=== PATIENT | female | born 1975 | race Caucasian/White ===

== ENCOUNTER → 2018-07-15 18:22 | Outpatient (CLI) | payer OTHER, SELFPAY ==
[2018-07-15 20:18] LABS: Chlamydia Trachomatis by PCR Negative (Negative); Neisserai gonorrhoeae by PCR Negative (Negative); Probe Check PASS; Sample Adequacy Control PASS; Specimen Processing Control PASS
== END ==
PROVIDERS: Visit Provider Obstetrics & Gynecology
DX: Z11.3 Encounter for screening for infections with a predominantly sexual mode of transmission (principal); Z30.430 Encounter for insertion of intrauterine contraceptive device
CPT/HCPCS: 87491; 87591

== ENCOUNTER → 2019-02-19 07:33 | Outpatient (CLI) | payer OTHER, SELFPAY ==
--- NOTE | 2019-02-19 07:38 | BI_ITS ---
MAMMOGRAPHY - BILATERAL SCREENING REASON FOR EXAM: Female, 44 years old. Routine annual screening examination. PERTINENT HISTORY: Non-contributory. TECHNIQUE: Digital bilateral breast dionisio (3D mammographic acquisition) in the CC and MLO projections. 2-D mediolateral oblique (MLO) and craniocaudad (CC) views of both breasts were obtained. CAD: Full Field Digital Mammography with Computer Added Detection was performed. COMPARISON: Comparison is made with prior study dated April 16, 2017 and April 13, 2016. FINDINGS: Breast Composition: The breasts are heterogeneously dense, which may obscure small masses. Once again, there are 2 dominant nodules in the left breast. These have increased in size as compared to prior study. The superior lateral one measures 2.8 cm x 2.2 cm. The centrally located nodular density measures 3.1 cm x 2.7 cm. These most likely represent cysts. Correlation with ultrasound is recommended. No other significant abnormalities are identified. BI/SCREENING MAMM (CAD), BILAT IMPRESSION: Increase in size of the left breast nodules as described. Correlation with ultrasound of the left breast is recommended. ASSESSMENT CATEGORY: BIRADS Category 0: Incomplete. Need additional imaging evaluation. A letter regarding these results will be sent to the patient by the facility within 30 days. Approximately 10% of breast cancers are not detected by mammography. A normal mammogram should not delay biopsy of a clinically suspicious abnormality. [id number] Electronically Signed: Armando Grant, at 11:01 EDT , Service support ,
== END ==
PROVIDERS: Family Provider Family Medicine; PCP Family Medicine; Referring Provider Obstetrics & Gynecology; Visit Provider Obstetrics & Gynecology
DX: Z12.31 Encounter for screening mammogram for malignant neoplasm of breast (principal)
CPT/HCPCS: 77063; 77067

== ENCOUNTER → 2019-02-23 14:20 | Outpatient (CLI) | payer OTHER, SELFPAY ==
--- NOTE | 2019-02-23 14:22 | US_ITS ---
STUDY: ULTRASOUND BREAST - LEFT REASON FOR EXAM: Female, 44 years old. Abnormal screening mammogram. TECHNIQUE: Axial and longitudinal images of the LEFT breast were performed with a high resolution ultrasound transducer. COMPARISON: Comparison is made with prior mammogram dated February 19, 2019 and prior sonogram of the left breast dated April 18, 2016. FINDINGS: LEFT Breast: 2 cysts are seen in the left breast. The largest measures 2.9 cm x 2.9 cm x 1.1 cm. This is at the 1:00 position breast by 1 cm from nipple. A similar appearing cyst measuring 1.8 cm x 1.9 cm x 0.9 cm is seen at the 2:00 position of the breast at 3 cm from the nipple. US/Breast Limited Unilateral IMPRESSION: 2 cysts are seen in the left breast as described corresponding to the mammographic findings. Routine mammographic follow-up is recommended. ASSESSMENT CATEGORY: BIRADS Category 2: Benign. A letter regarding these results will be sent to the patient by the facility within 30 days. Electronically Signed: Armando Grant, at 15:31 EDT , Service support ,
== END ==
PROVIDERS: Family Provider Family Medicine; PCP Family Medicine; Referring Provider Obstetrics & Gynecology; Visit Provider Obstetrics & Gynecology
DX: R92.8 Other abnormal and inconclusive findings on diagnostic imaging of breast (principal)
CPT/HCPCS: 76642

== ENCOUNTER → 2020-05-17 14:20 | Outpatient (CLI) | payer OTHER, SELFPAY ==
[2020-05-17 16:58] LABS: T3 Total - Triiodothyronine 1.39 ng/mL (0.6-1.81)
[2020-05-17 17:00] LABS: Free T3 3.5 pg/mL (2.18-3.98); T4 Free Direct 1.11 ng/dL (0.76-1.46); Thyroid Stim Hormone (TSH) 0.91 uIU/mL (0.358-3.74)
[2020-05-19 17:44] LABS: Thyroid Peroxidase AB < 9 IU/mL (0-34)
[2020-05-19 18:17] LABS: Thyroglobulin Antibody < 1.0 IU/mL (0.0-0.9)
== END ==
PROVIDERS: PCP Family Medicine; Visit Provider Obstetrics & Gynecology
DX: E04.8 Other specified nontoxic goiter (principal)
CPT/HCPCS: 36415; 84439; 84443; 84480; 84481; 86376; 86800

== ENCOUNTER → 2020-05-20 15:15 | Outpatient (CLI) | payer OTHER, SELFPAY ==
--- NOTE | 2020-05-20 15:22 | US_ITS ---
STUDY: THYROID ULTRASOUND REASON FOR EXAM: Female, 45 years old. LT PALP--- PER DR TECHNIQUE: Ultrasound evaluation of the thyroid was performed with real-time and static mcgrath-scale imaging. COMPARISON: None. FINDINGS: RIGHT LOBE: The right lobe of the thyroid gland measures 5.8 x 2.0 x 1.9 cm. There is a homogeneous echotexture. Nodule 1:6 x 10 x 8 mm cystic anechoic wider than tall smoothly marginated nodule with comet tail artifact (TR 1) in the inferior right lobe consistent with a colloid cyst. LEFT LOBE: The left lobe of the thyroid gland measures 5.1 x 1.4 x 1.5 cm. There is a homogeneous echotexture. Nodule 2:5 x 3 x 4 mm cystic anechoic wider than tall smoothly marginated nodule with no echogenic foci (TR 1) and the superior left lobe consistent with a colloid cyst. ISTHMUS: The isthmus measures 3 mm thick. . The regional lymph nodes are normal. US/Thyroid IMPRESSION: Normal ultrasound examination of the thyroid. Electronically Signed: Juventino Johnson MD at 9:10 EDT Tel , Service support ,
== END ==
PROVIDERS: PCP Family Medicine; Referring Provider Obstetrics & Gynecology; Visit Provider Obstetrics & Gynecology
DX: E04.8 Other specified nontoxic goiter (principal)
CPT/HCPCS: 76536

== ENCOUNTER → 2020-05-26 15:27 | Outpatient (CLI) | payer OTHER, SELFPAY ==
--- NOTE | 2020-05-26 15:29 | BI_ITS ---
MAMMOGRAPHY - BILATERAL SCREENING REASON FOR EXAM: Female, 45 years old. Routine annual screening examination. PERTINENT HISTORY: Non-contributory. TECHNIQUE: Digital bilateral breast leona (3D mammographic acquisition) in the CC and MLO projections. 2-D mediolateral oblique (MLO) and craniocaudad (CC) views of both breasts were obtained. CAD: Full Field Digital Mammography with Computer Added Detection was performed. COMPARISON: Comparison is made with prior examination dated February 19, 2019 and April 16, 2017. FINDINGS: Breast Composition: The breasts are heterogeneously dense, which may obscure small masses. There are no dominant masses or suspicious calcifications. Once again, 2 dominant nodules are seen in the upper deep lateral aspect of the left breast. The superior lateral nodular density measures 3.2 cm x 2.8 cm. The centrally located well-defined nodular density measures 3.1 cm by 3.3 cm. These have increased slightly in size as compared to prior study. Prior sonogram demonstrated these nodules to be cysts. No other significant abnormalities are identified. There has been no significant change since the prior study. BI/SCREEN MAMM (CAD) W/LEONA BILAT IMPRESSION: Slight increase in size of the 2 nodular densities in the left breast as described. Yearly follow-up mammogram recommended. (A) ASSESSMENT CATEGORY: BIRADS Category 2: Benign. A letter regarding these results will be sent to the patient by the facility within 30 days. Approximately 10% of breast cancers are not detected by mammography. A normal mammogram should not delay biopsy of a clinically suspicious abnormality. [id number] Electronically Signed: Armando Grant, at 8:07 EDT , Service support ,
== END ==
PROVIDERS: PCP Family Medicine; Referring Provider Obstetrics & Gynecology; Visit Provider Obstetrics & Gynecology
DX: Z12.31 Encounter for screening mammogram for malignant neoplasm of breast (principal)
CPT/HCPCS: 77063; 77067

== ENCOUNTER → 2021-08-07 14:46 | Outpatient (CLI) | payer OTHER, SELFPAY ==
--- NOTE | 2021-08-07 14:49 | BI_ITS ---
MAMMOGRAPHY - BILATERAL SCREENING REASON FOR EXAM: Female, 46 years old. Routine annual screening examination. PERTINENT HISTORY: Non-contributory. TECHNIQUE: Digital bilateral breast leona (3D mammographic acquisition) in the CC and MLO projections. 2-D mediolateral oblique (MLO) and craniocaudad (CC) views of both breasts were obtained. CAD: Full Field Digital Mammography with Computer Added Detection was performed. COMPARISON: Comparison is made with prior examination dated 05/26/2020 and 02/19/2019. FINDINGS: Breast Composition: The breasts are heterogeneously dense, which may obscure small masses. Since prior study, the dominant well-defined nodular density in the central lateral aspect of the left breast has resolved. A residual 1.7 cm cyst is seen along the lateral aspect of the right breast. No other significant abnormalities are identified. BI/SCRN MAMM (CAD)W/LEONA BILAT IMPRESSION: Interval decrease in size of the left breast nodule as described. Yearly follow-up mammogram recommended. (A) ASSESSMENT CATEGORY: BIRADS Category 2: Benign. A letter regarding these results will be sent to the patient by the facility within 30 days. Approximately 10% of breast cancers are not detected by mammography. A normal mammogram should not delay biopsy of a clinically suspicious abnormality. [id number] Electronically Signed: Armando Grant MD at 15:38 EDT , Service support ,
== END ==
PROVIDERS: PCP Family Medicine; Referring Provider Obstetrics & Gynecology; Visit Provider Obstetrics & Gynecology
DX: Z12.31 Encounter for screening mammogram for malignant neoplasm of breast (principal)
CPT/HCPCS: 77063; 77067

== ENCOUNTER → 2022-10-25 | Outpatient (CLI) | payer OTHER, SELFPAY ==
--- NOTE | 2022-10-25 12:52 | BI_ITS ---
MAMMOGRAPHY - BILATERAL SCREENING REASON FOR EXAM: Female, 47 years old. Routine annual screening examination. PERTINENT HISTORY: Non-contributory. TECHNIQUE: Digital bilateral breast leona (3D mammographic acquisition) in the CC and MLO projections. 2-D mediolateral oblique (MLO) and craniocaudad (CC) views of both breasts were obtained. CAD: Full Field Digital Mammography with Computer Added Detection was performed. COMPARISON: Comparison is made with prior study dated 08/07/2021 and 05/26/2020. FINDINGS: Breast Composition: The breasts are extremely dense, which lowers the sensitivity of mammography. There are no dominant masses or suspicious calcifications. No other significant abnormalities are identified. There has been no significant change since the prior study. BI/SCRN MAMM (CAD)W/LEONA BILAT IMPRESSION: Stable bilateral screening mammogram. Yearly follow-up mammogram recommended. (A) ASSESSMENT CATEGORY: BIRADS Category 1: Negative. A letter regarding these results will be sent to the patient by the facility within 30 days. Approximately 10% of breast cancers are not detected by mammography. A normal mammogram should not delay biopsy of a clinically suspicious abnormality. [id number] Electronically Signed: Armando Grant MD at 10:00 EST ,
== END | disposition home or self-care (01) ==
LOC: OPBI 12:50
PROVIDERS: PCP Family Medicine; Visit Provider Registered Nurse
DX: Z12.31 Encounter for screening mammogram for malignant neoplasm of breast (principal)
CPT/HCPCS: 77063; 77067

== ENCOUNTER → 2022-11-19 | Outpatient (CLI) | payer OTHER, SELFPAY ==
[2022-11-23 15:53] LABS: HPV APTIMA, High Risk Negative (Negative)
== END | disposition home or self-care (01) ==
PROVIDERS: PCP Family Medicine; Visit Provider Registered Nurse
DX: Z12.4 Encounter for screening for malignant neoplasm of cervix (principal)
CPT/HCPCS: 87624; 88175; G0145

== ENCOUNTER → 2023-12-04 | Outpatient (CLI) | payer OTHER, SELFPAY ==
--- NOTE | 2023-12-04 12:12 | BI_ITS ---
MAMMOGRAPHY - BILATERAL SCREENING REASON FOR EXAM: Female, 48 years old. Routine annual screening examination. PERTINENT HISTORY: Non-contributory. TECHNIQUE: Digital bilateral breast leona (3D mammographic acquisition) in the CC and MLO projections. 2-D mediolateral oblique (MLO) and craniocaudad (CC) views of both breasts were obtained. CAD: Full Field Digital Mammography with Computer Added Detection was performed. COMPARISON: Comparison is made with prior study dated October 25, 2022 and August 07, 2021. FINDINGS: Breast Composition: The breasts are extremely dense, which lowers the sensitivity of mammography. Procedure 1.2 cm x 1.3 cm well-defined nodule in the slightly upper lateral depth aspect of the left breast. Correlation with ultrasound is recommended. No other significant abnormalities are identified. BI/SCRN MAMM (CAD)W/LEONA BILAT IMPRESSION: 1.2 cm x 1.3 cm well-defined nodule in the slightly upper lateral aspect of the left breast as described. Correlation with ultrasound is recommended. ASSESSMENT CATEGORY: BIRADS Category 0: Incomplete. Need additional imaging evaluation. A letter regarding these results will be sent to the patient by the facility within 30 days. Approximately 10% of breast cancers are not detected by mammography. A normal mammogram should not delay biopsy of a clinically suspicious abnormality. [id number] Electronically Signed: Armando Grant MD at 14:58 EST ,
== END | disposition home or self-care (01) ==
LOC: OPBI 12:12
PROVIDERS: PCP Family Medicine; Referring Provider Nurse Practitioner Women's Health; Visit Provider Nurse Practitioner Women's Health
DX: Z12.31 Encounter for screening mammogram for malignant neoplasm of breast (principal)
CPT/HCPCS: 77063; 77067

== ENCOUNTER → 2023-12-13 | Outpatient (CLI) | payer OTHER, SELFPAY ==
--- NOTE | 2023-12-13 14:24 | US_ITS ---
STUDY: ULTRASOUND BREAST - LEFT REASON FOR EXAM: Female, 48 years old. Abnormal screening mammogram. TECHNIQUE: Axial and longitudinal images of the LEFT breast were performed with a high resolution ultrasound transducer. # OF IMAGES: 65 COMPARISON: Comparison is made with prior mammogram dated June 03, 2024. FINDINGS: LEFT Breast: The mammographic abnormality corresponds to a 1.3 cm x 1.3 cm x 1 cm hypoechoic solid nodule at the 3:00 position breast at 2 cm from the nipple. This is not a typical cyst. Aspiration is recommended. Incidental note is made of dilated retroareolar ducts. A cluster of small cysts is seen at the 11:00 position of the breast 4 cm from the nipple. US/Breast Limited Unilateral IMPRESSION: The mammographic abnormality corresponds to a 1.3 cm x 1.3 cm x 1 cm hypoechoic solid nodule at the 3:00 position the breast at 2 cm from the nipple. Biopsy recommended. ASSESSMENT CATEGORY: BIRADS Category 4: Suspicious - Biopsy Should Be Considered. A letter regarding these results will be sent to the patient by the facility within 30 days. Electronically Signed: Armando Grant MD at 15:36 EST ,
== END | disposition home or self-care (01) ==
LOC: OPUS 14:23
PROVIDERS: PCP Family Medicine; Referring Provider Nurse Practitioner Women's Health; Visit Provider Nurse Practitioner Women's Health
DX: R92.8 Other abnormal and inconclusive findings on diagnostic imaging of breast (principal); N63.25 Unspecified lump in the left breast, overlapping quadrants
CPT/HCPCS: 76642

== ENCOUNTER → 2023-12-18 | Outpatient (CLI) | payer OTHER, SELFPAY | END | disposition home or self-care (01) | LOC: LABSPEC 11:06 | PROVIDERS: PCP Family Medicine; Referring Provider Surgery; Visit Provider Surgery | DX: N60.09 Solitary cyst of unspecified breast (principal) | CPT/HCPCS: 87070; 87075; 87205 ==

== ENCOUNTER → 2024-12-11 | Outpatient (CLI) | payer OTHER, SELFPAY ==
--- NOTE | 2024-12-11 12:50 | BI_ITS ---
PROCEDURE: SCRN MAMM (CAD)W/LEONA BILAT REASON FOR EXAM: F, Age 49 y/o, prior left breast aspiration. TECHNIQUE: Bilateral screening digital breast tomosynthesis with 2D and 3D images. Computer aided detection. COMPARISON: Prior exam(s) dating back to December 04, 2023.. FINDINGS: The breasts are heterogeneously dense which may obscure small masses. Small bilateral axillary lymph nodes. Stable examination. No suspicious masses, areas of developing architectural distortion, or suspicious calcifications. BI/SCRN MAMM (CAD)W/LEONA BILAT IMPRESSION: BI-RADS 2: BENIGN. RECOMMEND ANNUAL MAMMOGRAPHIC SCREENING. Follow-up code: Routine Follow-up The patient will be notified of the results by letter. Reading Location: [place] [id number]
== END | disposition home or self-care (01) ==
LOC: OPBI 12:47
PROVIDERS: PCP Family Medicine; Referring Provider Nurse Practitioner Women's Health; Visit Provider Nurse Practitioner Women's Health
DX: Z12.31 Encounter for screening mammogram for malignant neoplasm of breast (principal)
CPT/HCPCS: 77063; 77067

== ENCOUNTER → 2025-02-17 | Outpatient (CLI) | payer OTHER, SELFPAY ==
[2025-02-17 19:58] LABS: Follicle Stimulating Hormone 73.4 mIU/mL; Thyroid Stim Hormone (TSH) 0.926 uIU/mL (0.300-4.200)
[2025-02-19 04:07] LABS: Thyroid Peroxidase AB 16 IU/mL (0-34)
== END | disposition home or self-care (01) ==
PROVIDERS: Nurse Practitioner Women's Health; PCP Family Medicine; Visit Provider Obstetrics & Gynecology
DX: Z13.29 Encounter for screening for other suspected endocrine disorder (principal); R23.2 Flushing
CPT/HCPCS: 36415; 83001; 84439; 84443; 86376

== ENCOUNTER → 2025-04-14 | Outpatient (CLI) | payer OTHER, SELFPAY ==
--- OUTSIDE RECORDS SUMMARY | 2025-04-14 07:10 | XMS RPT_ITS | CCD ---
Author Organization [facility] Care Team Providers Care Direct Mail Manager Name Role Phone Dr. Stefany Mayo Primary Care Provider Dr. Stefany Mayo Referring Provider DAYANNA Sanchez Attending Provider [phone] Stefany Mayo Primary Care Provider Dr. Stefany Mayo Referring Provider [phone] Angel SALES EFFECTIVENESS MANAGER, SALES EFFECTIVENESS MANAGER-C Celeste Attending Provider Dr. Neno Sharma Attending Provider [phone] Dr. Stefany Mayo MD Primary Care Provider [phone] Angel GOODEN-Celeste Ladd Attending Provider Angel GOODEN-CCeleste Referring Provider Dr. Stefany Mayo MD Referring Provider Dr. Gianna Babin DO Attending Provider Celeste Ortiz NP Attending Unavailable Stefany Mayo Primary Care Unavailable Stefany Mayo Referring Unavailable HamtramckCeleste ac NP Attending Unavailable Angel SALES EFFECTIVENESS MANAGERCeleste Referring Unavailable Stefany Mayo Primary Care Unavailable Stefany Mayo Primary Care Unavailable Gianna Babin Attending Unavailabl e Stefany Mayo Primary Care Unavailable Rondalliff Stefany S Referring Unavailable [place] SALES EFFECTIVENESS MANAGERCeleste Attending Unavailable Medications Current Medications Medication Drug Class(es) Dates Sig (Normalized) Sig (Original) aspirin 81 mg delayed release oral tablet (5 sources) Platelet Aggregation Inhibitor, Nonsteroidal Anti-inflammatory Drug Start: 11-19-2022 Aspirin (Adult Low Dose Aspirin) 81 mg tablet,delayed release (DR/EC) Active 81 mg PO DAILY November 19, 2022 1:00am estradiol 0.5 mg oral tablet (15 sources) Estrogen Start: 11-19-2022 End: 11-19-2022 take 1 tablet by mouth once daily as needed for headache Estradiol 0.5 mg tablet Active 0.5 mg PO DAILY as needed for migraine headache November 19, 2022 3:07pm off 5 days; repeat cycle folic acid 1 mg oral tablet (5 sources) Start: 11-19-2022 take 1 tablet by mouth once daily Folic Acid 1 mg tablet Active 1 mg PO DAILY November 19, 2022 1:00am Multivitamin (Daily Multi-Vitamin) tablet (5 sources) Start: 11-19-2022 Multivitamin (Daily Multi-Vitamin) tablet Active 1 {tbl} PO DAILY November 19, 2022 1:00am Start: 11-19-2022 take 1 tablet by frank once daily Multivitamin (Daily Multi-Vitamin) tablet Active 1 TABLET PO DAILY November 19, 2022 12:00am Completed/Discontinued Medications Medication Drug Class(es) Dates Sig (Normalized) Sig (Original) SUMAtriptan 25 mg oral tablet (5 sources) Serotonin-1b and Serotonin-1d Receptor Agonist Start: 11-19-2022 End: 12-04-2023 take 1 tablet by mouth once Sumatriptan Succinate 25 mg tablet Discontinued 25 mg PO ONCE 30 November 19, 2022 1:00am December 04, 2023 2:14pm Problems Problem Classification Problem Date Documented Date Episodic/Chronic Contraceptive and procreative management (6 sources) Intrauterine contraceptive device in situ; Translations: [Presence of (intrauterine) contraceptive device] 11-19-2022 Episodic Comment on above: mirena 2018 Headache; including migraine (4 sources) Migraine with aura; Translations: [Migraine with aura, not intractable, without status migrainosus] 12-04-2023 Chronic Nonmalignant breast conditions (5 sources) Cyst of breast; Translations: [Solitary cyst of unspecified breast] 12-18-2023 Episodic Other screening for suspected conditions (not mental disorders or infectious disease) (3 sources) Encounter for screening for other suspected endocrine disorder; Translations: [Encounter for screening for malignant neoplasm of colon] Onset: 12-24-2024 Episodic Prolapse of female genital organs (2 sources) Cystocele co-occurrent with incomplete uterovaginal prolapse; Translations: [Incomplete uterovaginal prolapse] 12-24-2024 Chronic Comment on above: asymptomatic Residual codes; unclassified (1 source) Flushing; Translations: [Flushing] 02-15-2025 Episodic Unclassified (2 sources) Encounter for screening for malignant neoplasm of colon; Translations: [Z12.11 - Encounter for screening for malignant neoplasm of colon] Results Test Name Value Interpretation Reference Range Facility Stogie Packer Office Visit Reporton 03-16-2025 [facility] Office Visit Report [facility] [address], [address] [place] [address] OFFICE VISIT Date of Service: 03/16/25 MR#: [id number] Acct: [id number] Name: GIANNA ALVARADO Rep #: [id number] : 1975 Provider: FLOR nunez Age/Sex: 50/F [place] [facility] [place]: Signed Intake Vital Signs 12/24/24 13:28 03/16/25 14:05 03/16/25 14:06 Height 5 ft 6 in 5 ft 6 in 5 ft 6 in Weight: 183 lb 4 oz BMI 29.5 BP 141/85 H Intake Visit Reasons: Menopause sx Rice 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: No Is patient in pain?: No Allergies No Known Allergies Allergy (Unverified 03/16/25 14:05) Medications ???Medication ???Instructions ???Recorded ???Confirmed ???Type aspirin 81 mg tablet,delayed 81 mg PO DAILY 11/19/22 03/16/25 H istory release (Adult Low Dose Aspirin) folic acid 1 mg tablet 1 mg PO DAILY 11/19/22 03/16/25 Hi story multivitamin (Daily Multi-Vitamin 1 tab PO DAILY 11/19/22 03/16/25 History tablet) Is last menstrual period known: No Post menopausal: No Patient : No : No Control Method: IUD PFSH Family History Grandmother Diabetes Social History adopted: No household members: spouse and children current occupational status: employed 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 She does have some occasional hot flashes but her biggest concern is her lack of motivation. It is noted her blood pressure is up today. HTN not been a problem for her in past. She also states she can hear her heartbeat in her ears, has had episodes of dizziness, headache and fatigue. States when she made appointment she was having left shoulder pain but that has resolved. She states she sleeps really well She has a mirena IUD that is due to be removed in 2025 History Past Pregnancies Del. Date Name GA/Weeks Outcome Route Bth Weight Gen Labor Lgth Anesthesia Del Locatn Provider FOB Unknown Bro still Female Unknown [id number] live - Female ROS Const Constitutional: Reports as per HPI Cardio Card: Reports as per HPI Resp Resp: Reports system reviewed and no additional complaints, except as documented Musc Musc: Reports as per HPI Psych Psych: Reports as per HPI Exam Const General: cooperative and no acute distress Orientation: oriented x3 HENMT Head: normal to inspection and normocephalic Eyes General: appearance normal, both eyes and all related structures Neck Neck: normal visual inspection Resp Effort Inspection: normal respiratory effort Neuro Cognition: normal cognition Speech: speech normal Psych Appearance: grossly normal Mood: congruent mood Affect: normal affect Speech and Movement: speech and movement normal Attitude: cooperative Judgment: judgment good Coding Level of Care Code Off vis,est,level 3 Diagnoses Elevated blood pressure reading R03.0 Dizziness R42 Postmenopausal Z78.0 Hot flashes R23.2 Migraine with aura and without status migrainosus, not intractable G43.109 Status migrainosus presence: without status migrainosus Intractability: not intractable IUD (intrauterine device) in place Z97.5 Assessment and Plan Assessment and Plan (1) Elevated blood pressure reading: Status: Acute (2) Dizziness: Status: Acute (3) Postmenopausal: Status: Acute (4) Hot flashes: Status: Acute Comment: minimal (5) Migraine with aura: Status: Acute Qualifiers: Status migrainosus presence: without status migrainosus Intractability: not intractable Qualified Code(s): G43.109 - Migraine with aura, not intractable, without status migrainosus (6) IUD (intrauterine device) in place: Status: Acute Comment: mirena 2018 Plan With her elevated blood pressure and migraines, I do not feel estrogen replacement is a good option for her and will not benefit her most concerning symptoms With what she described to me, I want her to see her PCP to evaluate for cardiac issues. If her shoulder pain recurs and notes headache, change in heartbeat, needs to go to ED. YVROSE swain, annual exam 03/16/25 1452 Date Celeste Ortiz NP SALES EFFECTIVENESS MANAGER-C Cosigner Signature: Date (if applicable) CC: Normal [facility] Thyroid Peroxidase ABon 02-09 THYR PEROX AB 16 IU/mL Normal 0-34 [facility] Comment on above: Result Comment: Perf ormed at: - [facility] [address] [id number] Arts Education Teacher: Tomy Cole PhD, Phone: [phone] Performed By: #### L 4229.3875, U0531.5119, F263.5298, A020.0522 #### [facility] [address] [place], [address] Follicle Stimulating Hormone on 02-17-2025 FSH 73.4 mIU/mL Normal [facility] Comment on above: Result Comment: FEMA LE: Follicular: 1.4 - 18.1 mIU/mL Midcycle: 3.4 - 33.4 mIU/mL Luteal: 1.5 - 9.1 mIU/mL Post Menopause: 23.0 - 116.3 mIU/mL MALE: 1.4 - 18.1 mIU/mL NORMAL REFERENCE RANGES FEMALE FOLLICULAR 2.3 - 12.6 mIU/mL MID-CYCLE PEAK 5.2 - 17.5 mIU/mL LUTEAL 1.7 - 12.9 mIU/mL POST-MENOPAUSAL ON MHT 5.9 - 72.8 mIU/mL NOT ON MHT 12.7 - 132.2 mlU/mL MALE 0.7 - 10.8 mIU/mL Performed By: #### L 3300.6900, L3100.5125, L506.0400, L501.9520 #### [facility] [address] [place], [address] Follicle stimulating hormone (FSH) levelOrdered By: Celeste Ortiz on 02-17-2025 Follicle Stimulating Hormone 73.4 mIU/mL [facility] Comment on above: FEMALE:Follicular: 1 .4 - 18.1 mIU/mLMidcycle: 3.4 - 33.4 mIU/mLLuteal: 1.5 - 9.1 mIU/mLPost Menopause: 23.0 - 116.3 mIU/mLMALE: 1.4 - 18.1 mIU/mL NORMAL REFERENCE RANGES FEMALE FOLLICULAR 2.3 - 12.6 mIU/mL MID-CYCLE PEAK 5.2 - 17.5 mIU/mL LUTEAL 1.7 - 12.9 mIU/mL POST-MENOPAUSAL ON MHT 5.9 - 72.8 mIU/mL NOT ON MHT 12.7 - 132.2 mlU/mL MALE 0.7 - 10.8 mIU/mL T4 Free Directon 02-17-2025 T4 FREE DIRECT 1.30 ng/dL Normal 0.76-1.46 [facility] Comment on above: Performed By: #### L 3300.6900, L3100.5125, L506.0400, L501.9520 #### [facility] [address] [place], [address] T4 freeOrdered By: Celeste ac on 02-17-2025 Free T4 [Mass/Vol] 1.30 ng/dL 0.76-1.46 [facility] TPO Ab QnOrdered By: Celeste anderson on 02-17-2025 Thyroid Peroxidase Antibodies 16 IU/mL 0-34 [facility] Comment on above: Performed at: - [facility] [id number] [place], [place] [id number] Director: Tomy Cole PhD, Phone: [phone] TSH DL <= 0.005 mIU/L QnOrde red By: Celeste Ortiz on 02-17-2025 Thyroid Stimulating Hormone (TSH) 0.926 uIU/mL 0.300-4.200 [facility] Thyroid Stim Hormone (TSH)on 02-17-2025 TSH 0.926 uIU/mL Normal 0.300-4.200 [facility] Comment on above: Performed By: #### L 3300.6900, L3100.5125, L506.0400, W694.7190 #### [facility] [address] 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) Chief Complaint: Annual Rice 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: No Is patient in pain?: No Allergies No Known Allergies Allergy (Unverified 12/24/24 13:19) Medications ???Medication ???Instructions ???Recorded ???Confirmed ???Type aspirin 81 mg tablet,delayed 81 mg PO DAILY 11/19/22 12/24/24 H istory release (Adult Low Dose Aspirin) estradiol 0.5 mg tablet 0.5 mg PO DAILY PRN migraine 11/1912/24/24 Rx headache #20 tabs folic acid 1 mg tablet 1 mg PO DAILY 11/19/22 12/24/24 Hi story multivitamin (Daily Multi-Vitamin 1 tab PO DAILY 11/19/22 12/24/24 History tablet) Is last menstrual period known: No Post menopausal: Yes Patient : No : No Control Method: Mirena 2018 [facility] Family History Grandmother Diabetes Social History adopted: No household members: spouse and children current occupational status: employed current occupation: [employer] pets and animals: Yes pets and animals: dog(s) Smoking Status: Never smoker alcohol intake: never caffeine: Yes what type of physical activity do you participate in: walking seatbelt use: always do you feel safe at home: No History Past Pregnancies Del. Date Name GA/Weeks Outcome Route Bth Weight Gen Labor Lgth Anesthesia Del Locatn Provider FOB Unknown Bro still Female Unknown [id number] live - Female HPI Encounter for routine gynecological examination Details: GIANNA ALVARADO is a 49 year old who presents for annual exam. No menses with IUD. No hot flashes. Still has symptoms of menses will occur. IUD needs replaced in 2025 Last PAP: 2022 History of abnormal PAP: no Last mammogram: 11/2024 History of abnormal mammogram: benign asp Colon cancer screening: encouraged Other preventative health care screenings: Gael Female Reproductive History Questions: metorrhagia: No, sexually active: Yes, dyspareunia: No and PCB: No ROS Const Constitutional: Denies fatigue, weight gain or weight loss Cardio Card: Denies chest pain Resp Resp: Denies cough or dyspnea on exertion GI GI: Denies abdominal pain, bloating, change in stool character, constipation or vomiting : Reports as per HPI; Denies difficulty voiding, pelvic pain, urinary frequency, urinary incontinence, urinary urgency, vaginal discharge or vaginal pruritus Exam Const General: cooperative, healthy appearing, no acute distress and well developed Orientation: alert, oriented to person and oriented to place [facility] Head: normal to inspection Neck Neck: normal visual inspection Thyroid: thyroid normal Lymphatic: no lymphadenopathy noted Chest Breast inspection: normal inspection of the breasts and normal inspection of the axillae Breast palpation: normal palpation of the breasts, normal palpation of the axillae and no axillary lymphadenopathy Resp Effort Inspection: normal respiratory effort GI Palpation: soft, no masses and nontender Rectal Exam: deferred External Female Exam: normal external appearance and normal appearance of the urethra Urethra: normal appearance of the urethra and normal palpation Speculum Exam - Vagina: normal appearance of the vagina and normal vaginal discharge Speculum Exam - Cervix: normal appearance of the cervix Bimanual Exam- Vagina Uterus: normal bimanual exam, uterine size normal, uterine shape normal and non-tender Bimanual Exam- Adnexa, other: normal adnexae, no masses, non-tender, cystocele and vaginal apex descent (cervix 3cm above introitus) Pelvic Support: cystocele and vaginal apex descent (cervix 3cm above introitus) Neuro General: patient alert and patient oriented x3 Psych Affect: normal affect Coding Level of Care Code Off vis,est,prev 40-64yrs Diagnoses Encounter for gynecological examination with abnormal finding Z01.411 Gynecological examination findings: abnormal findings PRESENT IUD (intrauterine device) in place Z97.5 Cystocele with incomplete uterovaginal prolapse N81.2 Assessment and Plan Assessment and Plan (1) Encounter for routine gynecological examination: Qualifiers: Gynecological examination findings: abnormal finding (more content not included)... Normal [facility] SCRN MAMM (CAD)W/LEONA BILATo n 12-11-2024 SCRN MAMM (CAD)W/LEONA BILAT [facility] [address], [place] [id number] SCRN MAMM (CAD)W/LEONA BILAT MR#: [id number] Acct: [id number] Name: GIANNA ALVARADO Rep #: [id number] : 1975 F 49 From: Armando hernandez MD PCP: Dr. Stefany Mayo MD Status: REG CLI Study: SCRN MAMM (CAD)W/LEONA BILAT Date of Exam: 11/13 12/05 Exam# [id number] Ordering Dr: Celeste Ortiz NP SALES EFFECTIVENESS MANAGER -C PROCEDURE: SCRN MAMM (CAD)W/LEONA BILAT REASON FOR EXAM: F, Age 49 y/o, prior left breast aspiration. TECHNIQUE: Bilateral screening digital breast tomosynthesis with 2D and 3D images. Computer aided detection. COMPARISON: Prior exam(s) dating back to December 04, 2023.. FINDINGS: The breasts are heterogeneously dense which may obscure small masses. Small bilateral axillary lymph nodes. Stable examination. No suspicious masses, areas of developing architectural distortion, or suspicious calcifications. BI/SCRN MAMM (CAD)W/LEONA BILAT IMPRESSION: BI-RADS 2: BENIGN. RECOMMEND ANNUAL MAMMOGRAPHIC SCREENING. Follow-up code: Routine Follow-up The patient will be notified of the results by letter. Reading Location: [place] [address] CC: SALES EFFECTIVENESS MANAGER-C Celeste Ortiz; Dr. 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 [facility] Gram stain for investigation of transfusion reactionOrdered By: Neno Sharma on 12-18-2023 Microscopic observation Gram stain Nom (Unsp spec) [facility] Routine wound cultureOrdered By: Neno Sharma on 12-18-2023 Bacteria identified Cx Nom (Wound) No growth aerobically. [facility] Cervical or vagninal specime n microscopic examination by cytology stain (reported asOrdered By: Martha Sanchez on 11-19-2022 Cytology report Cyto stain Doc (Cvx/Vag) Comment . [facility] Comment on above: The Pap smear is a s creening test designed to aid in thedetection of premalignant and malignant conditions of theuterine cervix. It is not a diagnostic procedure andshould not be used as the sole means of detecting cervicalcancer. Both false-positive and false-negative reports dooccur. Detection in cervical specim en of any of human papilloma virus (HPV) 16, 18, 31, 33,Ordered By: Martha Sanchez on 11-19-2022 HPV 16+18+31+33+35+39+45+51 +52+56+58+59+66+68 DNA Probe+sig amp Ql (Cvx) Negative Negative [facility] Comment on above: This nucleic acid am plification test detects fourteen high-risk HPV types (16,18,31,33,35,39,45,51,52,56,58,59,66,68)without differentiation. Laboratory - CytologyOrdered By: Martha Sanchez on 11-19-2022 Penology Teacher Cyto stain Nom (Cvx/Vag) [ID] Comment . [facility] Comment on above: Sho Jimenez, Cyto technologist (ASCP) Laboratory - Miscellaneous t estsOrdered By: Martha Sanchez on 11-19-2022 Service comment (Unsp spec) [Interp] Comment . [facility] Comment on above: This liquid based Th inPrep(R) pap test was screened withthe use of an image guided system. Service comment (Unsp spec) [Interp] . . [facility] Liquid-based cerv Pap + CT/G C by KIMMIE w reflex to high-risk HPV for ASCUSOrdered By: Martha Sanchez on 11-19-2022 Cytology report Cyto stain.thin prep Doc (Cvx/Vag) Comment . [facility] Comment on above: Criteria not met, HP V Genotype not performed.Performed at: - [facility] [id number] Director: Laura Olguin MD, Phone: [phone] at: = - [facility] [address] [id number] Director: Laura Olguin MD, Phone: [phone] No Panel InformationOrdered By: Martha Sanchez on 11-19-2022 Pathology report final diagnosis Narrative Comment . [facility] Comment on above: NEGATIVE FOR INTRAEP ITHELIAL LESION OR MALIGNANCY. Vital Signs Date Time Vital Sign Value Performing Clinician Anastasia jung 12-24-2024 13:28-0500 Body height 167.[address] Stefany Mayo MD Work Phone: [facility] 12-24-2024 13:19-0500 Body mass index (BMI) [Ratio] 29.7 kg/m2 Dr. Stefany Mayo MD Work Phone: 5(054)532-224271 [place] [address] 12-24-2024 13:19-0500 Body weight 83.[address] Stefany Mayo MD Work Phone: 8(043)172-494713 [address] 12-24-2024 13:19-0500 Diastolic blood pressure 84 mm[Hg] Dr. Stefany Mayo MD Work Phone: 9(277)575-052261 [place] [address] 12-24-2024 13:19-0500 Systolic blood pressure 132 mm[Hg] Dr. Stefany Mayo MD Work Phone: 7(345)069-747061 [place] [address] 12-18-2023 10:11-0500 Diastolic blood pressure 88 mm[Hg] Dr. Stefany Mayo Work Phone: 5(711)437-335761 [place] [address] 12-18-2023 10:11-0500 Respiratory rate 16 /min Dr. Stefany Mayo Work Phone: 8(139)169-966061 [place] [address] 12-18-2023 10:11-0500 Systolic blood pressure 136 mm[Hg] Dr. Stefany Mayo Work Phone: 4(621)216-990361 [place] [address] 12-18-2023 09:56-0500 Body height 167.[address] Stefany Mayo Work Phone: 5(850)621-985213 [address] 12-04-2023 13:06-0500 Body height 167.[address] Stefany Mayo Work Phone: 9(940)630-270171 [place] [address] 12-04-2023 13:06-0500 Body mass index (BMI) [Ratio] 30.2 kg/m2 Dr. Stefany Mayo Work Phone: 7(739)262-627271 [place] [address] 12-04-2023 13:06-0500 Body weight 84.[address] Stefany Mayo Work Phone: 8(862)471-122071 [place] [address] 12-04-2023 13:06-0500 Diastolic blood pressure 84 mm[Hg] Dr. Stefany Mayo Work Phone: 3(397)822-344871 [place] [address] 12-04-2023 13:06-0500 Systolic blood pressure 124 mm[Hg] Dr. Stefany Mayo Work Phone: [facility] 11-19-2022 13:25-0500 Body weight 82.[address] Stefany Mayo Work Phone: [facility] 11-19-2022 13:25-0500 Diastolic blood pressure 85 mm[Hg] Dr. Stefany Mayo Work Phone: [facility] 11-19-2022 13:25-0500 Systolic blood pressure 123 mm[Hg] Dr. Stefany Mayo Work Phone: [facility] Encounters Encounter Date Encounter Type Care Provider Facility Start: 03-16-2025 End: 03-16-2025 ambulatory Stefany Mayo [place] [place] Start: 02-17-2025 End: 02-17-[address] Stefany Mayo MD Work Phone: [facility] Work Phone: Start: 02-17-2025 End: 02-17-[address] Gianna Babin DO -Lab, [facility] Start: 02-17-2025 End: 02-17-2025 ambulatory Stefany Mayo Facility:[facility] Start: 12-24-2024 End: 12-24-2024 Patient encounter procedure Celeste Ortiz SALES EFFECTIVENESS MANAGER-C -[facility] Work Phone: Start: 12-24-2024 End: 12-24-2024 Patient encounter status Celeste Ortiz SALES EFFECTIVENESS MANAGER-C [facility] Start: 12-24-2024 End: 12-24-2024 ambulatory Celeste Ortiz SALES EFFECTIVENESS MANAGER Facility:[facility] Start: 12-11-2024 End: 12-11-2024 Patient encounter procedure Celeste Ortiz SALES EFFECTIVENESS MANAGER-C -[facility] Work Phone: Start: 12-11-2024 End: 12-11-2024 ambulatory Celeste Ortiz NP Facility:[facility] Start: 12-18-2023 End: 12-18-[address] Stefany Mayo Work Phone: [facility] Work Phone: Start: 12-18-2023 End: 12-18-[address] Stefany Mayo Work Phone: [facility]-Laboratory, Specimen Work Phone: Start: 12-18-2023 End: 12-18-[address] Stefany Mayo Work Phone: [facility] Work Phone: Start: 12-13-2023 End: 12-13-[address] Stefany Mayo Work Phone: [facility] Work Phone: Start: 12-13-2023 End: 12-13-[address] Stefany Mayo Work Phone: [facility] Work Phone: Start: 12-04-2023 End: 12-04-[address] Stefany Mayo Work Phone: [facility] Work Phone: Start: 12-04-2023 End: 12-04-[address] Stefany Mayo Work Phone: [facility] Work Phone: Start: 11-19-2022 End: 11-19-[address] Stefany Mayo Work Phone: [facility] Work Phone: Start: 11-19-2022 End: 11-19-[address] Stefany Mayo Work Phone: [facility]-Laboratory, Specimen Start: 11-19-2022 End: 11-19-[address] Stefany Mayo Work Phone: [facility] Start: 10-25-2022 End: 10-25-2022 ambulatory [facility] Work Phone: Start: 10-25-2022 End: 10-25-2022 Patient encounter procedure [facility]-Outpatient Breast Imaging Procedures Date Procedure Procedure Detail Performing Clinician Start: 12-11-2024 Screening mammography Fartun Mayo MD Work Phone: Start: 12-18-[address] Stefany Mayo Work Phone: Start: 12-18-2023 Investigation of tra nsfusion reaction Dr. Stefany Mayo Work Phone: Start: 12-18-2023 Microbial culture, routine Dr. Stefany Mayo Work Phone: Start: 12-13-[address] Stefany Mayo Work Phone: Start: 12-04-2023 Screening mammography Fartun Mayo Work Phone: Start: 10-25-2022 Screening mammography Plan of Treatment Date Care Activity Detail Author Start: 12-24-2024 Patient referral [facility] Work Phone: Start: 12-18-2023 Anaerobic Culture Anaerobic Culture [facility] Start: 12-18-2023 Wound Culture Wound Culture [facility] Start: 12-18-2023 Source specific culture [facility] Start: 11-19-2022 Patient referral [facility] Work Phone: Bacteria identified in Unspecified specimen by Anaerobe culture [facility] Bacteria identified in Wound by Culture [facility] Patient referral [facility] Work Phone: Payers Date Payer Category Payer Private Health Insurance [id number] 2024 Self-pay [id number] 2011 Private Health Insurance [employer] [id number] Self-pay SELF PAY INSURANCE [id number] Unknown [id number] Unknown [id number] Unknown [id number] Unknown [id number] Social History Date Type Detail Facility Tobacco smoking stat [facility] Unknown if ever smoked [facility] Work Phone: Start: 1975 Sex Assigned At Female [facility] Start: 11-19-2022 End: 12-18-2023 Tobacco smoking status [facility] Unknown if ever smoked [facility] Start: 12-18-2023 Tobacco smoking stat [facility] Never smoked tobacco (finding) [facility] Start: 02-23-2025 Sex Female (finding) [facility] Evaluation note 12-24-2024 Note Date & Type Note Facility 12-24-2024 Evaluation note Diagnosis Onset Date Resolution Cystocele with incomplete uterovaginal prolapse acute December 24, 025 1:14pm IUD (intrauterine device) in place acute December 24, 2024 1:14pm Encounter for routine gynecological examination noneactive December 24, 025 1:14pm [facility] Work Phone: Clinical Note 11-19-2022 Note Date & Type Note Facility 11-19-2022 Note [facility] Pap Smear Specimen Adequacy November 19, 2022 5:53pm Comment . Satisfactory for evaluation. Endocervical and/or squamous metaplasticcells (endocervical component) are present. Comment on above: Satisfactory for julianna luation. Endocervical and/or squamous metaplasticcells (endocervical component) are present. Evaluation note Note Date & Type Note Facility Evaluation note No assessment information availa ble [facility] Work Phone: Evaluation note Note Date & Type Note Facility Evaluation note Diagnosis Onset Date Encounter for routine gyneco logical examination noneactive [facility] Work Phone: Evaluation note Note Date & Type Note Facility Evaluation note Diagnosis Onset Date Encounter for routine gyneco logical examination noneactive Breast cyst acute [facility] Work Phone: Chief Complaint and Reason for Visit Chief Complaint SCREENING Chief Complaint SCREENING 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) Reason for Visit Encounter for routin e gynecological examination Chief Complaint SCREENING 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) ABN MAMM BIRADS 4 Reason for Visit Encounter for routin e gynecological examination Breast cyst Chief Complaint Admit Date SCREENING December 11, 2024 1 2:46pm 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) December 24, 2024 1:14pm Reason for Visit Admit Date Cystocele with incomplete uterovaginal p rolapse December 24, 2024 1:14pm IUD (intrauterine device) in place Febru donna 2024 1:14pm Encounter for routine gynecological exam ination December 24, 2024 1:14pm Summary Purpose Family History No Family History Records Found Advance Directives No Advanced Directives Records Found Additional Source Comments Goals (unrecognized section and content) Goals may be documented in a n alternate sectionGoals may be documented in an alternate sectionGoals may be documented in an alternate sectionGoals may be documented in an alternate sectionGoals may be documented in an alternate sectionGoals may be documented in an alternate section Care Teams (unrecognized sec tion and content) Team Status: Active Member Role Status Dates Dr. Stefany Mayo MD Family Provider Active Dr. Stefany Mayo MD Primary Care Provider Active Team Status: Inactive Member Role Status Dates Dr. Stefany Mayo MD Primary Care Provider, Referjoie g Provider Active Martha Sanchez CNM Attending Provider Active Team Status: Inactive Member Role Status Dates Dr. Stefany Mayo MD Primary Care Provider Active Martha Sanchez CNM Attending Provider Active Team Status: Inactive Member Role Status Dates Dr. Stefany Mayo MD Primary Care Provider, Referrin g Provider Active Celeste Ortiz NP, NP-C Attending Provider Active Team Status: Inactive Member Role Status Dates Dr. Stefany Mayo MD Primary Care Provider Active Celeste Ortiz SALES EFFECTIVENESS MANAGER SALES EFFECTIVENESS MANAGER-C Attending Provider, Referring Provider Active Team Status: Inactive Member Role Status Dates Dr. Stefany Mayo MD Primary Care Provider, Referrin g Provider Active Dr. Neno Sharma MD Attending Provider Active Team Status: Active Member Role Status Dates Dr. Stefany Mayo MD Primary Care Provider Active Dr. Neno Sharma MD Attending Provider, Referring Provider Active Team Status: Inactive Member Role Status Dates Dr. Stefany Mayo MD Primary Care Provider Active Dr. Neno Sharma MD Attending Provider, Referring Provider Active Team Status: Active Member Role Status Dates Dr. Stefany Mayo MD Primary Care Provider Active Team Status: Inactive Member Role Status Dates Dr. Stefany Mayo MD Primary Care Provider Active Start: December 11, 2024 End: December 11, 2024 Celeste Ortiz SALES EFFECTIVENESS MANAGER, SALES EFFECTIVENESS MANAGER-C Attending Provider Active Start: December 11, 2024 End: December 11, 2024 Celeste Ortiz SALES EFFECTIVENESS MANAGER, SALES EFFECTIVENESS MANAGER-C Referring Provider Active Start: December 11, 2024 End: December 11, 2024 Team Status: Inactive Member Role Status Dates Dr. Stefany Mayo MD Primary Care Provider Active Start: December 24, 2024 End: December 24, 2024 Dr. Stefany Mayo MD Referring Provider Active Start: December 24, 2024 End: December 24, 2024 Celeste Ortiz SALES EFFECTIVENESS MANAGER, SALES EFFECTIVENESS MANAGER-C Attending Provider Active Start: December 24, 2024 End: December 24, 2024 Team Status: Inactive Member Role Status Dates Dr. Stefany Mayo MD Primary Care Provider Active Start: February 17, 2025 End: February 17, 2025 Dr. Gianna Babin DO Attending Provider Activ e Start: February 17, 2025 End: February 17, 2025 INFORMATION SOURCE (unrecogn ized section and content) DATE CREATED AUTHOR 03/19/2025 [facility] FOR RECORDS PERTAINING TO PATIENTS WHO ARE OR HAVE BEEN ENROLLED IN A CHEMICAL DEPENDENCY/SUBSTANCEABUSE PROGRAM, SOME INFORMATION MAY BE OMITTED. This clinical summary was aggregated from multiple sources. Caution should be exercised in using it in the provision of clinical care. This summary normalizes information from multiple sources, and as a consequence, information in this document may materially change the coding, format and clinical context of patient data. In addition, data may be omitted in some cases. CLINICAL DECISIONS SHOULD BE BASED ON THE PRIMARY CLINICAL RECORDS. [email or web address] provides no warranty or guarantee of the accuracy or completeness of information in this document.
[2025-04-14 08:03] LABS: Follicle Stimulating Hormone 71.8 mIU/mL
== END | disposition home or self-care (01) ==
LOC: LAB 07:05
PROVIDERS: Referring Provider Nurse Practitioner Women's Health; Visit Provider Nurse Practitioner Women's Health
DX: Z78.0 Asymptomatic menopausal state (principal)
CPT/HCPCS: 36415; 82670; 83001